=== PATIENT | male | born 1960 | race Caucasian/White ===

== ENCOUNTER 2020-12-30 06:50 | Emergency (ER) | payer BC ==
[~2020-12-30] VITALS: Ht 177.8 cm; Wt 81.7 kg
[2020-12-30 06:51] VITALS: BP 145/99
[2020-12-30] MEDS ORDERED: NOHOMEMEDICATIONS (06:55)
[2020-12-30] MEDS ORDERED: NAPROSYN500 MG PO (07:50)
[2020-12-30] MEDS ORDERED: APAP W/CODEINE1 TA2 PO (07:50)
== END 2020-12-30 07:51 | disposition home or self-care (01) ==
LOC: ER 06:50
DX: S30.0XXA Contusion of lower back and pelvis, initial encounter (principal); S20.211A Contusion of right front wall of thorax, initial encounter; Z90.89 Acquired absence of other organs; X58.XXXA Exposure to other specified factors, initial encounter; Y93.89 Activity, other specified; Y92.89 Other specified places as the place of occurrence of the external cause; Y99.8 Other external cause status